=== PATIENT | male | born 1985 | race Caucasian/White ===

== ENCOUNTER → 2023-03-09 14:23 | Outpatient (BNVA) | payer BC, SELFPAY | PROVIDERS: Visit Provider Nurse Practitioner Family | DX: S59.901A Unspecified injury of right elbow, initial encounter (principal); V86.99XA Unspecified occupant of other special all-terrain or other off-road motor vehicle injured in nontraffic accident, initial encounter | CPT/HCPCS: 73070; 73130 ==